=== PATIENT | male | born 1945 | race Caucasian/White ===

== ENCOUNTER 2020-08-11 20:57 | Observation (INO) ==
[2020-08-11 21:16] LABS: Basophils % 0.4 %; Eosinophils # 0.1 K/mcL (0.0-0.6); Eosinophils % 2.3 %; Hematocrit 33.6 % (37.5-50.1); Hemoglobin 11.5 g/dL (12.9-16.9); Immature Granulocytes % 0.4 % (0-4); Lymphocytes # 0.9 K/mcL (0.6-4.6); Lymphocytes % 18.8 %; Mean Corpuscular HGB Conc 34.2 g/dL (31.6-35.5); Mean Corpuscular Hemoglobin 29.9 pg (28.0-33.3); Mean Corpuscular Volume 87.3 fL (83.0-100.0); Mean Platelet Volume 9.7 fL (9.4-12.4); Monocytes # 0.4 K/mcL (0.0-1.3); Neutrophils # 3.3 K/mcL (1.6-8.9); Platelet Count 77 K/mcL (140-400); Red Blood Count 3.85 M/mcL (4.19-5.50); Red Cell Distribution Width 16.1 % (11.5-14.5); Segmented Neutrophils % 69.1 %; White Blood Count 4.8 K/mcL (4.3-11.1)
[2020-08-11 21:21] LABS: Prothrombin Time 11.2 Seconds (9.4-12.1)
[2020-08-11 21:23] LABS: Activated Partial Thrombo Time 32.7 Seconds (26.0-36.0)
[2020-08-11 21:31] LABS: BUN/Creatinine Ratio 11 (6-26); Blood Urea Nitrogen 22 mg/dL (8-23); Carbon Dioxide 24 mEq/L (23-29); Chloride 103 mEq/L (98-107); Glucose 116 mg/dL (70-105); Osmolality,Calculated 284 (280-300); Potassium 3.9 mEq/L (3.5-5.1); Sodium 135 mEq/L (136-145); eGFR For African Americans 40 (> 60); eGFR For Non-African Americans 33 (> 60)
[2020-08-11 21:35] LABS: Troponin I < 0.03 ng/mL (< 0.04)
[2020-08-11] MEDS ORDERED: Azithromycin 500 MG in 0.9 % Sodium Chloride 250 ML IVPB ONE (21:59)
[2020-08-11] MEDS ORDERED: cefTRIAXone 1,000 MG in 0.9 % Sodium Chloride Mini Bag 100 ML IVPB ONE (22:00)
[2020-08-11] MEDS ORDERED: Isovue-370 500 ML BOTTLE IVP ONE (22:13)
[2020-08-11] MEDS ORDERED: 0.9 % Sodium Chloride 1,000 ML IVC ONE (22:15)
[2020-08-11 22:33] LABS: Bilirubin,Urine Negative (Negative); Blood,Urine Negative (Negative); Clarity,Urine Slightly Cloudy (Clear); Glucose,Urine (UA) Normal (Normal); Ketones,Urine Negative (Negative); Leukocyte Esterase,Urine Negative (Negative); Nitrite,Urine Negative (Negative); Protein,Urine Trace mg/dL (Neg-Trace); Specific Gravity,Urine 1.025 (1.010-1.025); Urobilinogen,Urine Normal (Normal)
[2020-08-11 22:34] LABS: Color,Urine Yellow (Yellow)
[2020-08-11 22:37] LABS: Amorphous Sediment,Urine Few per hpf (None-Few)
[2020-08-11] MEDS ORDERED: Naloxone 0.4 MG/ML INJ IVP PRN (23:37)
[2020-08-12 00:33] LABS: Adenovirus Not Detected (Not Detect); Bordetella Pertussis Not Detected (Not Detect); Chlamydophila pneumoniae Not Detected (Not Detect); Coronavirus 229E Not Detected (Not Detect); Coronavirus HKU1 Not Detected (Not Detect); Coronavirus NL63 Not Detected (Not Detect); Coronavirus OC43 Not Detected (Not Detect); Human Metapneumovirus Not Detected (Not Detect); Human Rhinovirus/Enterovirus Not Detected (Not Detect); Influenza A Subtype 2009 H1 Not Detected (Not Detect); Influenza B Not Detected (Not Detect); Mycoplasma pneumoniae Not Detected (Not Detect); Parainfluenza Virus 1 Not Detected (Not Detect); Parainfluenza Virus 2 Not Detected (Not Detect); Parainfluenza Virus 3 Not Detected (Not Detect); Parainfluenza Virus 4 Not Detected (Not Detect); Respiratory Syncytial Virus Not Detected (Not Detect); SARS-CoV-2 Not Detected (Not Detect)
[2020-08-12] MEDS ORDERED: Nitroglycerin 0.4 MG TAB.SUBL SL PRN (01:04)
[2020-08-12] MEDS ORDERED: Naloxone 0.4 MG/ML INJ IVP PRN (02:01)
[2020-08-12] MEDS ORDERED: Insulin LISPRO 300 UNITS/3 ML VIAL SQ SCH (07:30)
[2020-08-12] MEDS: Insulin LISPRO 300 UNITS/3 ML VIAL SQ SCH ×2 (08:12→11:39)
[2020-08-12] MEDS ORDERED: Ranolazine 500 MG TAB.ER.12H PO SCH (09:00)
[2020-08-12] MEDS ORDERED: hydrALAZINE 25 MG TABLET PO SCH (09:00)
[2020-08-12] MEDS ORDERED: Isosorbide MONOnitrate (24 HR) 60 MG TAB.ER.24H PO SCH (09:00)
[2020-08-12] MEDS ORDERED: calcitrioL 0.25 MCG CAPSULE PO SCH (09:00)
[2020-08-12] MEDS ORDERED: levETIRAcetam 250 MG TABLET PO SCH (09:00)
[2020-08-12] MEDS ORDERED: Finasteride 5 MG TABLET PO SCH (09:00)
[2020-08-12] MEDS ORDERED: Aspirin Enteric Coated 81 MG Tablet PO SCH (09:00)
[2020-08-12] MEDS: Nitroglycerin 0.4 MG TAB.SUBL SL PRN ×2 (13:48→14:36)
[2020-08-12] MEDS ORDERED: *HR* Heparin 5,000 UNIT/ML VIAL IVP ONE (14:36)
[2020-08-12] MEDS ORDERED: *HR* Heparin 5,000 UNIT/ML VIAL IVP PRN ×2 (14:36)
[2020-08-12 14:37] VITALS: BP 133/68
[2020-08-12] MEDS ORDERED: Morphine Sulfate 2 MG/ML SYRINGE IVP PRN (14:37)
[2020-08-12] MEDS ORDERED: Heparin 25,000UNIT/250ML 1/2NS 25,000 UNIT/250 ML IV.SOLN IVC SCH (14:45)
[2020-08-12] MEDS ORDERED: Mirtazapine 15 MG TABLET PO SCH (21:00)
[2020-08-12] MEDS ORDERED: Azithromycin 500 MG in 0.9 % Sodium Chloride 250 ML IVPB SCH (21:00)
== END 2020-08-12 16:04 | disposition short-term general hospital (02) ==
LOC: EMEROOGRE 20:57 → INPGRE 20:57
PROVIDERS: ADMIT Student in an Organized Health Care Education/Training Program; ATTEND Student in an Organized Health Care Education/Training Program